=== PATIENT | male | born 1995 | race Caucasian/White ===

== ENCOUNTER 2024-03-02 17:11 | Emergency (ER) | payer MEDICARE, MEDICAID ==
--- NOTE | 2024-03-02 18:59 | ED Physician Documentation ---
History of Present Illness - Stated complaint Stated Complaint: L FINGER LAC - Chief complaint Chief Complaint: Laceration - History obtained from History obtained from: Patient - History of Present Illness Timing: Yesterday Pain level max: 2 Pain level now: 0 - Additonal information Additional information: 20-year-old male presents to the emergency department for a wound check. He states that yesterday he had a laceration to the tip of the left thumb. He states that he put a bandage on it, but wanted to come in today to make sure that it did not need stitches. His tetanus shot is up-to-date. No redness, swelling or drainage. PD PAST MEDICAL HISTORY - Past Medical History Past Medical History: No Cardiovascular: None Respiratory: None Neuro: None Endocrine/Autoimmune: None GI: None : None HEENT: None Psych: None Musculoskeletal: None Derm: None - Past Surgical History Past Surgical History: No - Allergies Allergies/Adverse Reactions: Allergies Allergy/AdvReac Type Severity Reaction Status Date / Time No Known Drug Allergies Allergy Verified 03/02/24 17:14 - Social History Does the pt smoke?: No Smoking Status: Never smoker Does the pt drink ETOH?: No Does the pt have substance abuse?: No - Immunizations Immunizations are current?: Yes - POLST Patient has POLST: No PD ED PE NORMAL - Vitals Vital signs reviewed: Yes - General General: Alert and oriented X 3, No acute distress - Derm Derm: Warm and dry - Extremities Extremities: Other (Small semicircular flap laceration to the tip of the left thumb. No nail injury. Neurovascular intact. No erythema, swelling or drainage) - Neuro Neuro: Alert and oriented X 3 Results - Vitals Vitals: Vital Signs - 24 hr 03/02/24 03/02/24 17:14 19:12 Temperature 36.5 C 36.5 C Heart Rate 90 88 Respiratory 16 16 Rate Blood Pressure 142/87 H 130/86 H O2 Saturation 98 100 Oxygen O2 Source Room air PD Medical Decision Making - ED course Complexity details: considered differential, d/w patient ED course: Patient with a small laceration to the tip of the left thumb yesterday. No indication for suturing today. Recommend continuing supportive care. Counseled that the small semicircular skin may necrosis and if it does not radiate here. This will granulate in underneath. Warnings of infection and instructions on wound care given at bedside. Also counseled on how to minimize scarring. Patient counseled regarding signs and symptoms for which I believe and urgent re-evaluation would be necessary. Patient with good understanding of and agreement to plan and is comfortable going home at this time This document was made in part using voice recognition software. While efforts are made to proofread this document, sound alike and grammatical errors may occur. Departure - Departure Disposition: 01 Home, Self Care Clinical Impression: Laceration Condition: Good Instructions: ED Laceration Hand Follow-Up: [facility] [Provider Group] [facility] [place] [Provider Group] Primary[facility] [place] [Provider Group] [facility] [place] [Provider Group] Comments: Please follow-up with your doctor in 1 week for a wound check. Please return if you notice redness, swelling or drainage from the wound. As we discussed it is too late to suture the wound at this point. The flap on the tip of your finger may readhere to the finger or it may turn black and fall off. If this happens there will be a scar underneath where the flap is. Keep the wound clean. Return if you worsen Forms: PCP List Discharge Date/Time: 03/02/24 19:12
[2024-03-02 19:23] VITALS: BP 130/86; O2SAT 100
== END 2024-03-02 19:12 | disposition home or self-care (01) ==
LOC: ED 17:11
DX: S61.012D Laceration without foreign body of left thumb without damage to nail, subsequent encounter (principal); X58.XXXD Exposure to other specified factors, subsequent encounter
CPT/HCPCS: 99281; 99282